=== PATIENT | female | born 1950 | race Caucasian/White ===

== ENCOUNTER → 2017-09-18 | Outpatient (CLI) | payer MEDICARE, OTHER ==
[~2017-09-18] MED LIST: ASPI81CH PO; ATOR10 PO; CEPH500 PO; ESTROGEN; HYDACE5325 PO; LEVSOD100 PO; LEVSOD75 PO; PROGESTERONE CREAM
== END | disposition home or self-care (01) ==
LOC: LAB SHORT 09:01 → PLD 09:01
DX: D22.5 Melanocytic nevi of trunk (principal); D22.61 Melanocytic nevi of right upper limb, including shoulder
CPT/HCPCS: 88305

== ENCOUNTER 2022-11-07 08:10 | Day surgery (SDC) | payer MEDICARE ==
[~2022-11-07] VITALS: Ht 152.4 cm; Wt 44.7 kg
[~2022-11-07 08:10] MED LIST changes: +ESTRADIOL (TWI1 EAC4 TD; +FAMO40 PO; +MULTIPLE VITAM1 EACH PO; +PROG100 PO; +VITAMIN B-1250 MCG PO
[2022-11-07 08:36] VITALS: BP 132/77
--- NOTE | 2022-11-07 08:43 | NUR ---
Ambulatory in Day Surgery. History, Chart, Medications and Allergies reviewed before start of procedure. Lungs clear T/O to Auscultation. Patient confirms NPO status and agrees with scheduled surgery. Pre-Op teaching done. Pt verbalizes understanding. Patient States Post-Procedure ride home has been arranged.
--- NOTE | 2022-11-07 09:16 | NUR ---
11/07/22 0916 Юлия Lugo HISTORY, CHART, MEDICATIONS AND ALLERGIES REVIEWED BEFORE START OF PROCEDURE. PATIENT CONFIRMS NPO STATUS AND AGREES WITH SCHEDULED PROCEDURE. 3-LEAD EKG REVIEWED WITH PHYSICIAN PRIOR TO START OF PROCEDURE. MONITOR INTACT WITH CONTINUOUS PULSE OXIMETRY,CAPNOGRAPHY, 3-LEAD EKG, INTERMITTENT BP. SUPPLEMENTAL O2 TO BE TITRATED THROUGHOUT PROCEDURE TO MAINTAIN O2 SATURATION ABOVE 90%. PATIENT DETERMINED TO BE ASA APPROPRIATE FOR PROPOFOL SEDATION PRIOR TO START OF PROCEDURE BY DR. VELARDE.
[2022-11-07 09:30] VITALS: BP 138/59
--- NOTE | 2022-11-07 09:32 | NUR ---
REPORT RECEIVED FROM MELODY REDDY RN. VSS. PT ABLE TO REPOSITION SELF IN BED. PT REQUESTING PO FLUIDS AND TOLERATING THEM WELL. PT DENIES PAIN OR DISCOMFORT.
[2022-11-07 09:43] VITALS: BP 134/79
--- NOTE | 2022-11-07 09:54 | NUR ---
Patient up to Ambulate independently. Gait steady. VSS. Discharge instructions reviewed with patient. Patient verbalizes understanding. Copy given to patient to take home. Patient States Post-Procedure ride home has been arranged. Discharged via wheelchair to private car for ride home. PT BELONGINGS RETURNED TO PT.
== END 2022-11-07 22:48 | disposition home or self-care (01) ==
LOC: ORSCMMR 08:10 → ORD 09:00 → ORSCMMR 22:48
PROVIDERS: Internal Medicine Gastroenterology
PROC: 0DJD8ZZ Inspection of Lower Intestinal Tract, Via Natural or Artificial Opening Endoscopic (ICD-10-PCS; principal; 2022-11-07 09:00)
DX: Z12.11 Encounter for screening for malignant neoplasm of colon (principal); Z86.010 Personal history of colon polyps; E03.9 Hypothyroidism, unspecified; K21.9 Gastro-esophageal reflux disease without esophagitis; Z79.890 Hormone replacement therapy; Z79.899 Other long term (current) drug therapy
CPT/HCPCS: J2704; J7120

== ENCOUNTER 2024-06-27 09:46 | Day surgery (SDC) | payer MEDICARE, OTHER ==
[~2024-06-27] VITALS: Ht 154.9 cm; Wt 45.8 kg
[~2024-06-27 09:46] MED LIST changes: +EPINEPhrine HCl 1 MG/ML 1ML Amp ONE; +Ropivacaine 0.5% HCL/PF 5 MG/ML 30ML Vial ONE
[2024-06-27] MEDS ORDERED: CeFAZolin Sodium 2,000 MG VIAL ONE (10:05)
[2024-06-27] MEDS ORDERED: Estrace Vagin42.5 GM (10:14)
[2024-06-27] MEDS ORDERED: ESTRADIOL CREAM (10:15)
[2024-06-27] MEDS ORDERED: COQ-10100 MG (10:16)
[2024-06-27] MEDS ORDERED: ERGO400 (10:16)
[2024-06-27] MEDS ORDERED: FISH OIL (10:16)
[2024-06-27] MEDS ORDERED: MAGCIT300 (10:17)
[2024-06-27] MEDS ORDERED: SUMA25 (10:18)
[2024-06-27] MEDS ORDERED: Lactated Ringer's 1,000 ML IV ONE (10:21)
[2024-06-27] MEDS ORDERED: Ondansetron HCl 2 MG / ML 2ML Vial ONE (11:15)
[2024-06-27] MEDS ORDERED: Dexamethasone Sod Phos 10 MG/ML 1ML VIAL ONE (11:15)
[2024-06-27] MEDS ORDERED: propofoL 20 ML IV ONE (11:16)
[2024-06-27] MEDS ORDERED: FentaNYL Citrate 50 MCG/ML 2 ML Injection ONE (11:16)
[2024-06-27 14:51] VITALS: BP 141/75
== END 2024-06-27 15:05 | disposition home or self-care (01) ==
LOC: ORSCSDS 09:46
PROVIDERS: Podiatrist Foot & Ankle Surgery
PROC: 0SGN04Z Fusion of Left Metatarsal-Phalangeal Joint with Internal Fixation Device, Open Approach (ICD-10-PCS; principal; 2024-06-27 11:15)
DX: M20.22 Hallux rigidus, left foot (principal); E03.9 Hypothyroidism, unspecified; Z79.899 Other long term (current) drug therapy
CPT/HCPCS: C1713; J0171; J0690; J1100; J2405; J2704; J2795; J3010